=== PATIENT | female | born 1995 ===

== ENCOUNTER → 2017-07-10 | Outpatient (CLI) | payer SELFPAY | LOC: LAB 11:45 → LAB SHORT 11:45 | PROVIDERS: Registered Nurse Community Health | DX: Z12.4 Encounter for screening for malignant neoplasm of cervix (principal) | CPT/HCPCS: G0123 ==

== ENCOUNTER → 2018-02-07 | Outpatient (CLI) | payer OTHER | LOC: LAB SHORT 15:18 → LAB UCHC 15:18 | DX: N89.8 Other specified noninflammatory disorders of vagina (principal) | CPT/HCPCS: 87070; 87205 ==

== ENCOUNTER → 2018-11-21 | Outpatient (CLI) | payer OTHER ==
[2018-11-21 20:38] LABS: Candida species (DNA Probe) Positive (NEGATIVE); G. vaginalis (DNA Probe) Positive (NEGATIVE); T. vaginalis (DNA Probe) Negative (NEGATIVE)
== END ==
LOC: LAB 19:38 → LAB SHORT 19:38
PROVIDERS: Nurse Practitioner
DX: N72 Inflammatory disease of cervix uteri (principal)
CPT/HCPCS: 87480; 87510; 87660

== ENCOUNTER → 2019-04-09 | Outpatient (CLI) | payer BC | END | disposition home or self-care (01) | LOC: PLD 13:45 → LAB SHORT 13:45 | DX: N72 Inflammatory disease of cervix uteri (principal); B96.89 Other specified bacterial agents as the cause of diseases classified elsewhere | CPT/HCPCS: 88305 ==

== ENCOUNTER → 2019-04-09 | Outpatient (CLI) | payer BC ==
[2019-04-10 10:04] LABS: Candida species (DNA Probe) Positive (NEGATIVE); G. vaginalis (DNA Probe) Negative (NEGATIVE); T. vaginalis (DNA Probe) Negative (NEGATIVE)
== END ==
LOC: LAB 10:10 → LAB SHORT 10:10
PROVIDERS: Obstetrics & Gynecology
DX: N89.8 Other specified noninflammatory disorders of vagina (principal)
CPT/HCPCS: 87480; 87510; 87660

== ENCOUNTER → 2019-05-26 | Outpatient (CLI) | payer BC | END | disposition home or self-care (01) | LOC: LAB 15:22 → LAB SHORT 15:22 | DX: N39.0 Urinary tract infection, site not specified (principal); R30.0 Dysuria | CPT/HCPCS: 87077; 87086; 87186 ==

== ENCOUNTER 2023-01-20 13:25 | Inpatient (IN) | payer BC ==
[~2023-01-20] VITALS: Ht 152.4 cm; Wt 72.5 kg
[2023-01-20] VITALS (10 sets, daily range): BP systolic 112–146; BP diastolic 60–78
[2023-01-20 14:23] LABS: BASOPHILS ABSOLUTE AUTO 0.03 K/mm3 (0.00-0.23); BASOPHILS PERCENT AUTO 0 % (0-2); EOSINOPHILS ABSOLUTE AUTO 0.01 K/mm3 (0.00-0.68); EOSINOPHILS PERCENT AUTO 0 % (0-6); Hematocrit 36.6 % (33.0-51.0); Hemoglobin 12.2 g/dL (11.5-16.0); IMMATURE GRAN ABSOLUTE AUTO 0.06 K/mm3 (0.00-0.10); IMMATURE GRAN PERCENT AUTO 0 % (0-1); LYMPHOCYTES ABSOLUTE AUTO 1.09 K/mm3 (0.84-5.20); LYMPHOCYTES PERCENT AUTO 7 % (21-46); MONOCYTES ABSOLUTE AUTO 0.68 K/mm3 (0.16-1.47); MONOCYTES PERCENT AUTO 4 % (4-13); Mean Corpuscular HGB 27.8 pg (26.0-34.0); Mean Corpuscular HGB Conc 33.3 g/dL (31.5-36.5); Mean Corpuscular Volume 83 fL (80-100); Mean Platelet Volume 10.7 fL (9.1-12.4); NEUTROPHILS PERCENT AUTO 89 % (41-73); Platelet Count 402 K/mm3 (150-400); RDW Standard Deviation 39.5 fL (35.1-46.3); Red Blood Cell Count 4.39 M/mm3 (3.80-5.20); White Blood Cell Count 16.87 K/mm3 (4.00-11.30)
[2023-01-21 02:12] VITALS: BP 118/70
--- NOTE | 2023-01-21 05:30 | NUR ---
RN EDUCATED PT REGARDING BREAST FEEDING SCHEDULE FOR NB'S. NB WENT LONGER THAN SHOULD BETWEEN BREAST FEEDINGS, RN WOKE PT UP AND REMINDED HER TO BREASTFEED NB. PT STATED "WE TRIED TO WAKE HER UP EARLIER BUT SHE WASNT INTERESTED IN FEEDING SO WE LET HER SLEEP." RN RESTATED THAT NB'S NEED TO EAT Q 2-3 HOURS IN EARLY DAYS, THEN THEY GET OLDER THEY CAN GO LONGER STRETCHES W/O EATING. RN ENCOURAGED PT TO HIT THE CALL LIGHT IF SHE EVER NEEDS HELP WAKING OR LATCHING NB DURING FEED.
[2023-01-21 06:00] VITALS: BP 109/66
[2023-01-21 06:18] LABS: Hematocrit 33.4 % (33.0-51.0); Hemoglobin 11.1 g/dL (11.5-16.0); Mean Corpuscular HGB 28.3 pg (26.0-34.0); Mean Corpuscular HGB Conc 33.2 g/dL (31.5-36.5); Mean Corpuscular Volume 85 fL (80-100); Mean Platelet Volume 10.5 fL (9.1-12.4); Platelet Count 319 K/mm3 (150-400); RDW Coefficient Variation 13.2 % (11.7-14.2); RDW Standard Deviation 40.9 fL (35.1-46.3); Red Blood Cell Count 3.92 M/mm3 (3.80-5.20); White Blood Cell Count 15.94 K/mm3 (4.00-11.30)
[2023-01-21 08:17] VITALS: BP 113/74
[2023-01-21] MEDS ORDERED: ACET500 PO (08:27)
[2023-01-21] MEDS ORDERED: IBUP800 PO (08:27)
[2023-01-21 15:05] VITALS: BP 117/64
--- NOTE | 2023-01-21 17:42 | NUR ---
DISCHARGE DISCHARGE HOME STABLE. VSS. AFEBRILE. LOCHIA SCANT. CARING FOR SELF AND BABY INDEPENDANTLY. VERBALIZES UNDERSTANDING OF DC INSTRUCTIONS AND FOLLOW UP APPOINTMENTS. NO QUESTIONS OR CONCERNS.
[2023-01-21 17:47] VITALS: BP 111/69
== END 2023-01-21 18:36 | disposition home or self-care (01) | DRG 807 ==
LOC: BC 13:25 → OBS 13:25 → BC 13:45
PROVIDERS: ADMIT Advanced Practice Midwife
PROC: 10E0XZZ Delivery of Products of Conception, External Approach (ICD-10-PCS; principal; 2023-01-20)
PROC: 0HQ9XZZ Repair Perineum Skin, External Approach (ICD-10-PCS; 2023-01-20)
DX: O69.1XX0 Labor and delivery complicated by cord around neck, with compression, not applicable or unspecified (principal); Z37.0 Single live birth; Z3A.39 39 weeks gestation of pregnancy; O70.0 First degree perineal laceration during delivery
CPT/HCPCS: 36415; 59025; 85025; 85027; 86850; 86900; 86901; A9270; J2590; J3010

== ENCOUNTER → 2024-04-15 | Outpatient (CLI) | payer OTHER ==
[~2024-04-15] MED LIST: ACET500 PO; IBUP800 PO
[2024-04-15 14:34] LABS: BASOPHILS ABSOLUTE AUTO 0.03 K/mm3 (0.00-0.23); BASOPHILS PERCENT AUTO 0 % (0-2); EOSINOPHILS ABSOLUTE AUTO 0.08 K/mm3 (0.00-0.68); EOSINOPHILS PERCENT AUTO 1 % (0-6); Hematocrit 34.5 % (33.0-51.0); Hemoglobin 11.7 g/dL (11.5-16.0); IMMATURE GRAN ABSOLUTE AUTO 0.02 K/mm3 (0.00-0.10); IMMATURE GRAN PERCENT AUTO 0 % (0-1); LYMPHOCYTES ABSOLUTE AUTO 1.69 K/mm3 (0.84-5.20); LYMPHOCYTES PERCENT AUTO 19 % (21-46); MONOCYTES ABSOLUTE AUTO 0.52 K/mm3 (0.16-1.47); MONOCYTES PERCENT AUTO 6 % (4-13); Mean Corpuscular HGB 30.1 pg (26.0-34.0); Mean Corpuscular HGB Conc 33.9 g/dL (31.5-36.5); Mean Corpuscular Volume 89 fL (80-100); Mean Platelet Volume 9.9 fL (9.1-12.4); NEUTROPHILS ABSOLUTE AUTO 6.41 K/mm3 (1.96-9.15); NEUTROPHILS PERCENT AUTO 73 % (41-73); Platelet Count 345 K/mm3 (150-400); RDW Standard Deviation 42.1 fL (35.1-46.3); Red Blood Cell Count 3.89 M/mm3 (3.80-5.20); White Blood Cell Count 8.75 K/mm3 (4.00-11.30)
== END ==
LOC: LAB SHORT 13:10 → LAB 13:10
PROVIDERS: Advanced Practice Midwife
DX: Z34.93 Encounter for supervision of normal pregnancy, unspecified, third trimester (principal)
CPT/HCPCS: 82950; 85025

== ENCOUNTER 2024-07-04 05:21 | Inpatient (IN) | payer OTHER ==
[~2024-07-04] VITALS: Ht 152.4 cm; Wt 71.3 kg
[2024-07-04] VITALS (13 sets, daily range): BP systolic 93–130; BP diastolic 58–78
[2024-07-04] MEDS ORDERED: Acetaminophen 500 MG Tab PO PRN (05:40)
[2024-07-04] MEDS ORDERED: Methylergonovine Maleate 0.2MG / ML 1ML Amp IM PRN ×2 (05:40→06:35)
[2024-07-04] MEDS ORDERED: Oxytocin 10 Unit / ML Vial IM PRN (05:40)
[2024-07-04] MEDS ORDERED: Tranexamic Acid 100 ML IV SCH (05:40)
[2024-07-04] MEDS ORDERED: Carboprost Tromethamine 250 MCG/ML 1ML Amp IM PRN ×2 (05:40→06:40)
[2024-07-04] MEDS ORDERED: OXYTOCIN/RINGER'S LACTATE 500 ML IV PRN (05:40)
[2024-07-04] MEDS ORDERED: Lactated Ringer's 1,000 ML IV PRN (05:40)
[2024-07-04] MEDS ORDERED: Ondansetron HCl 2 MG / ML 2ML Vial IV PRN (05:40)
[2024-07-04] MEDS ORDERED: Misoprostol 200 MCG Tab BC PRN ×2 (05:40→06:40)
[2024-07-04] MEDS ORDERED: Misoprostol 200 MCG Tab PR PRN ×2 (05:40→06:40)
[2024-07-04] MEDS ORDERED: Calcium Carbonate 500 MG Tab Chew PO PRN (05:40)
[2024-07-04] MEDS ORDERED: OXYTOCIN/RINGER'S LACTATE 500 ML IV ONE (05:43)
[2024-07-04 06:02] LABS: BASOPHILS ABSOLUTE AUTO 0.05 K/mm3 (0.00-0.23); BASOPHILS PERCENT AUTO 0 % (0-2); EOSINOPHILS ABSOLUTE AUTO 0.04 K/mm3 (0.00-0.68); EOSINOPHILS PERCENT AUTO 0 % (0-6); Hematocrit 34.6 % (33.0-51.0); Hemoglobin 11.6 g/dL (11.5-16.0); IMMATURE GRAN ABSOLUTE AUTO 0.05 K/mm3 (0.00-0.10); IMMATURE GRAN PERCENT AUTO 0 % (0-1); LYMPHOCYTES ABSOLUTE AUTO 1.85 K/mm3 (0.84-5.20); LYMPHOCYTES PERCENT AUTO 15 % (21-46); MONOCYTES ABSOLUTE AUTO 0.91 K/mm3 (0.16-1.47); MONOCYTES PERCENT AUTO 7 % (4-13); Mean Corpuscular HGB 26.3 pg (26.0-34.0); Mean Corpuscular HGB Conc 33.5 g/dL (31.5-36.5); Mean Corpuscular Volume 79 fL (80-100); Mean Platelet Volume 10.2 fL (9.1-12.4); NEUTROPHILS ABSOLUTE AUTO 9.33 K/mm3 (1.96-9.15); NEUTROPHILS PERCENT AUTO 76 % (41-73); Platelet Count 297 K/mm3 (150-400); RDW Coefficient Variation 13.8 % (11.7-14.2); RDW Standard Deviation 39.2 fL (35.1-46.3); Red Blood Cell Count 4.41 M/mm3 (3.80-5.20); White Blood Cell Count 12.23 K/mm3 (4.00-11.30)
[2024-07-04] MEDS ORDERED: PRENATAL TABLE1 EAC2 PO (06:13)
[2024-07-04] MEDS ORDERED: Acetaminophen 325 MG TABLET PO PRN (06:35)
[2024-07-04] MEDS ORDERED: Misoprostol 100 MCG Tab PO PRN (06:35)
[2024-07-04] MEDS ORDERED: Ibuprofen 400 MG Tab PO PRN (06:40)
[2024-07-04] MEDS ORDERED: Docusate Sodium 100 MG Cap PO PRN (06:40)
[2024-07-04] MEDS ORDERED: Lactated Ringer's 1,000 ML IV SCH (06:40)
[2024-07-04] MEDS ORDERED: Witch Hazel/Glycerin PADS TOP PRN (06:40)
[2024-07-04] MEDS ORDERED: OxyCODONE 5 mg/Acetamin 325 mg TABLET PO PRN (06:45)
[2024-07-04] MEDS ORDERED: Benzocaine Topical Anesthetic Spray 60GM TOP PRN (06:45)
[2024-07-04] MEDS ORDERED: Ketorolac Tromethamine 30mg Vial IV PRN (06:55)
[2024-07-04] MEDS ORDERED: Prenatal Vit/FE Fumarate/FA 1 Tab PO SCH (09:00)
[2024-07-04] MEDS ORDERED: Ketorolac Tromethamine 30mg Vial IV SCH (12:00)
[2024-07-05 03:49] VITALS: BP 115/72
[2024-07-05 06:02] LABS: BASOPHILS ABSOLUTE AUTO 0.02 K/mm3 (0.00-0.23); BASOPHILS PERCENT AUTO 0 % (0-2); EOSINOPHILS ABSOLUTE AUTO 0.09 K/mm3 (0.00-0.68); EOSINOPHILS PERCENT AUTO 1 % (0-6); Hemoglobin 10.2 g/dL (11.5-16.0); IMMATURE GRAN ABSOLUTE AUTO 0.04 K/mm3 (0.00-0.10); IMMATURE GRAN PERCENT AUTO 1 % (0-1); LYMPHOCYTES ABSOLUTE AUTO 1.87 K/mm3 (0.84-5.20); LYMPHOCYTES PERCENT AUTO 24 % (21-46); MONOCYTES ABSOLUTE AUTO 0.72 K/mm3 (0.16-1.47); MONOCYTES PERCENT AUTO 9 % (4-13); Mean Corpuscular HGB 26.9 pg (26.0-34.0); Mean Corpuscular HGB Conc 32.9 g/dL (31.5-36.5); Mean Corpuscular Volume 82 fL (80-100); Mean Platelet Volume 9.9 fL (9.1-12.4); NEUTROPHILS ABSOLUTE AUTO 5.08 K/mm3 (1.96-9.15); NEUTROPHILS PERCENT AUTO 65 % (41-73); Platelet Count 247 K/mm3 (150-400); RDW Coefficient Variation 14.4 % (11.7-14.2); Red Blood Cell Count 3.79 M/mm3 (3.80-5.20); White Blood Cell Count 7.82 K/mm3 (4.00-11.30)
[2024-07-05 07:05] VITALS: BP 107/69
[2024-07-05 10:35] VITALS: BP 108/71
--- NOTE | 2024-07-05 10:46 | NUR ---
DISCHARGE PT ESCORTED TO PERSONAL VEHICLE. PT PROVIDED WITH DISCHARGE INSTRUCTIONS, MOM/ BABY FOLLOW UP APPTS SCHEDULED FOR SUNDAY, AND ALL PERSONAL BELONGINGS FROM ROOM TO HOME WITH PT.
== END 2024-07-05 10:40 | disposition home or self-care (01) | DRG 807 ==
LOC: OBS 05:21 → BC 05:23 → OBS 05:46 → BC 05:47
PROVIDERS: ADMIT Family Medicine
PROC: 10E0XZZ Delivery of Products of Conception, External Approach (ICD-10-PCS; principal; 2024-07-04)
DX: O62.3 Precipitate labor (principal); Z37.0 Single live birth; Z3A.39 39 weeks gestation of pregnancy; O70.0 First degree perineal laceration during delivery
CPT/HCPCS: 36415; 59025; 85025; 86850; 86900; 86901; 99214; A9270; J1885; J2590